=== PATIENT | female | born 1955 | race Caucasian/White ===

== ENCOUNTER → 2016-11-06 | Day surgery (SDC) | payer OTHER ==
[~2016-11-06] MED LIST: Bupivacaine 0.5% 50 ML MDV ONE; Dextrose 5%-Lactated Ringers 1,000 ML IV SCH; Lidocaine 1% with EPINEPHrine 1:100,000 50 ML MDV ONE; Midazolam 1 MG/ML 2 ML SDV ONE; Propofol 200 MG/20 ML SDV ONE; fentaNYL 100 MCG/2 ML SDV ONE
[2016-11-06 12:46] VITALS: BP 183/76
--- NOTE | 2016-11-09 14:26 | OR ---
DATE OF PROCEDURE: 11/06/2016 PREOPERATIVE DIAGNOSIS: Left breast mass. POSTOPERATIVE DIAGNOSIS: Left breast mass. OPERATIVE PROCEDURE: Excisional biopsy of the left breast mass ([id number]). ANESTHESIA: Local plus IV sedation. INDICATION FOR PROCEDURE: This is a 60-year-old presenting with a palpable mass in the left breast. It was located just adjacent to the nipple areolar complex at more or less 8 o'clock position and measured about a centimeter in size. This patient is status post previous breast implants in and the nodule is within the breast tissue nearly overlying the implant. Given this, it was felt needle biopsy might be somewhat risky given the age of this implant sacs of liquid silicone which if ruptured result in significant morbidity. Plan is to proceed with an excisional biopsy. Potential risks including bleeding, infection, possibility of the prosthesis becoming infected or damaged as well as possible cosmetic deformity were reviewed and the patient wishes to proceed. DETAILS OF PROCEDURE: The patient was taken to the operating room and placed in supine position. IV sedation was administered, and the left breast and surrounding areas were prepped and draped. The location of the mass which had been marked preoperatively was once again confirmed and the area along the nipple areolar complex in that location then anesthetized with 1% lidocaine mixed with Marcaine. A periareolar incision was then made and carried down through the skin and subcutaneous tissue. The mass was then sequentially dissected out. This appeared to be largely cystic in characteristics and the mass was removed intact and completely. Deeper soft tissue was then approximated with some 3-0 and 4- 0 Vicryl stitch and the skin with a 5-0 Vicryl subcuticular stitch. Dressing was applied. The patient was taken to the recovery room in satisfactory condition. There were no evident complications. Kurt Mckinley MD /[id number]
== END ==
LOC: JP.SDS 08:15
PROVIDERS: ATTEND Surgery
DX: D24.2 Benign neoplasm of left breast (principal); I10 Essential (primary) hypertension; F32.9 Major depressive disorder, single episode, unspecified; E66.9 Obesity, unspecified; F17.210 Nicotine dependence, cigarettes, uncomplicated; Z88.0 Allergy status to penicillin; Z88.8 Allergy status to other drugs, medicaments and biological substances
CPT/HCPCS: 19120; J2250; J2704; J3010; J7042; 88305; 88341; 88342

== ENCOUNTER 2017-08-07 13:08 | Emergency (ER) | payer OTHER ==
[2017-08-07] MEDS ORDERED: Ondansetron 4 MG Tab.DIS PO ONE (13:27)
[2017-08-07] MEDS ORDERED: Atropine/Diphenoxylate 0.025-2.5 MG Tab PO ONE (13:28)
[2017-08-07] MEDS ORDERED: Acetaminophen 500 MG Tab PO ONE (13:33)
--- NOTE | 2017-08-07 13:33 | EDM.PDOC ---
ED HPI GENERAL MEDICAL PROBLEM - General Chief Complaint: Abdominal Pain Stated Complaint: DIZZY AND LIGHT HEADED Time Seen by Provider: 08/07/17 13:15 Source of Information: Reports: Patient, Old Records, RN History Limitations: Reports: No Limitations - History of Present Illness INITIAL COMMENTS - FREE TEXT/NARRATIVE: 61 yo female presents with a week's duration of vomiting and diarrhea. Says her stools are dark. Says she has been nearly passing out today. Had an appt in 90 minutes in the clinic, but could not wait. Has a pHx of diverticulitis and this feels similar. Reports pain to both LLQ and RLQ's of her abdomen. No longer has a gallbladder or an appendix. Also has a dry cough that she attributes to her losartan, not her smoking. Onset Date: 07/31/17 Duration: Week(s): (1), Constant Location: Reports: Abdomen Quality: Reports: Dull Severity: Moderate Improves with: Reports: None Worsens with: Reports: None Associated Symptoms: Reports: Nausea/Vomiting, Syncope (near syncope). 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) (none) Lower Abdominal Pain Score (Numeric/FACES): 6 - Related Data Allergies Allergy/AdvReac Type Severity Reaction Status Date / Time Penicillins Allergy Intermediate Hives Verified 11/06/16 08:56 codeine Allergy Hives Verified 11/06/16 08:56 morphine Allergy Hives Verified 11/06/16 10:08 Home Meds: Home Meds DULoxetine [Cymbalta] 120 mg PO DAILY 11/03/16 [History] Losartan [Cozaar] 100 mg PO DAILY 11/03/16 [History] Naproxen [Naprosyn] 500 mg PO Q12HR 11/03/16 [History] Olmesartan Medoxomil 5 mg PO DAILY 11/03/16 [History] Ondansetron [Zofran ODT] 4 mg PO Q6H PRN #7 tab.dis 08/07/17 [Rx] amLODIPine Besylate [Norvasc] 10 mg PO DAILY #30 tablet 08/07/17 [Rx] Past Medical History Cardiovascular History: Reports: Hypertension Gastrointestinal History: Reports: None Genitourinary History: Reports: None 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 cervical fracture Neurological History: Reports: Concussion Psychiatric History: Reports: Depression - Past Surgical History Cardiovascular Surgical History: Reports: None GI Surgical History: Reports: Appendectomy, Cholecystectomy Female Surgical History: Reports: Breast Implant, Other (See Below) Other Female Surgeries/Procedures: left breast lump Neurological Surgical History: Reports: C-Spine Musculoskeletal Surgical History: Reports: Other (See Below) Other Musculoskeletal Surgeries/Procedures:: cervical fusion Dermatological Surgical History: Reports: None Social & Family History - Family History Family Medical History: Noncontributory - Tobacco Use Smoking Status *Q: Current Every Day Smoker Years of Tobacco use: 17 Packs/Tins Daily: 0.5 Used Tobacco, but Quit: No Month/Year Tobacco Last Used: 05/20 Second Hand Smoke Exposure: No - Caffeine Use Caffeine Use: Reports: Coffee - Alcohol Use Days Per Week of Alcohol Use: 0 - Recreational Drug Use Recreational Drug Use: Yes Recreational Drug Type: Reports: Marijuana/Hashish Recreational Drug Use Frequency: Rarely ED ROS GENERAL - Review of Systems Review Of Systems: See Below Constitutional: Reports: Malaise, Weakness HEENT: Reports: No Symptoms Respiratory: Reports: No Symptoms Cardiovascular: Reports: Lightheadedness Endocrine: Reports: No Symptoms GI/Abdominal: Reports: Abdominal Pain, Black Stool, Diarrhea, Nausea, Vomiting. Denies: Constipation, Distension, Hematemesis, Hematochezia : Reports: No Symptoms Musculoskeletal: Reports: No Symptoms Skin: Reports: No Symptoms Neurological: Reports: No Symptoms ED EXAM, GI/ABD - Physical Exam Exam: See Below Exam Limited By: No Limitations General Appearance: Alert, WD/WN, No Apparent Distress Eyes: Bilateral: Normal Appearance, EOMI Ears: Normal External Exam, Normal Canal, Hearing Grossly Normal, Normal TMs Nose: Normal Inspection, Normal Mucosa, No Blood Throat/Mouth: Normal Inspection, Normal Lips, Normal Oropharynx, Normal Voice, No Airway Compromise Head: Atraumatic, Normocephalic Neck: Normal Inspection, Supple Respiratory/Chest: No Respiratory Distress, Lungs Clear, Normal Breath Sounds, No Accessory Muscle Use Cardiovascular: Regular Rate, Rhythm, No Edema GI/Abdominal Exam: Normal Bowel Sounds, Soft, No Distention, Tender (LLQ and RLQ 's). No: Non-Tender, Distended, Guarding, Rigid, Rebound Extremities: Normal Inspection, Normal Range of Motion, Non-Tender, No Pedal Edema Neurological: Alert, Oriented, CN II-XII Intact, Normal Cognition, No Motor/ Sensory Deficits Psychiatric: Normal Affect, Normal Mood Skin Exam: Warm, Dry, Intact, Normal Color, No Rash Course - Vital Signs Text/Narrative:: Feeling a lot better after treatment. No more vomiting. Last Recorded V/S: Last Vital Signs Temp 35.2 C 08/07/17 13:40 Pulse 95 08/07/17 16:59 Resp 18 08/07/17 16:59 BP 170/83 H 08/07/17 16:59 Pulse Ox 97 08/07/17 16:59 Orthostatic Blood Pressure [ 150/82 Standing] Orthostatic Blood Pressure [ 129/82 Sitting] Orthostatic Blood Pressure [ 148/87 Supine] - Orders/Labs/Meds Orders: Active Orders 24 hr Category Date Time Status Orthostatic Vital Signs [RC] ASDIRECTED Care 08/07/17 13:27 Active Hemoccult [OCCULT BLOOD DIAGNOSTIC] [OP] Stat Lab 08/07/17 13:27 Ordered Labs: Laboratory Tests 08/07/17 08/07/17 Range/Units 13:40 13:40 WBC 5.7 (4.5-11.0) K/uL RBC 5.40 (3.30-5.50) M/uL Hgb 15.9 H (12.0-15.0) g/dL Hct 48.0 (36.0-48.0) % MCV 89 (80-98) fL MCH 29 (27-31) pg MCHC 33 (32-36) % Plt Count 230 (150-400) K/uL Sodium 137 L (140-148) mmol/L Potassium 4.1 (3.6-5.2) mmol/L Chloride 103 (100-108) mmol/L Carbon Dioxide 18 L (21-32) mmol/L Anion Gap 20.1 H (5.0-14.0) mmol/L BUN 18 (7-18) mg/dL Creatinine 1.2 H (0.6-1.0) mg/dL Est Cr Clr Drug Dosing 47.27 mL/min Estimated GFR (MDRD) 46 L (>60) Glucose 139 H (74-106) mg/dL Calcium 8.9 (8.5-10.1) mg/dL C-Reactive Protein 0.17 (0.0-0.3) mg/dL Meds: Medications Discontinued Medications Generic Name Dose Route Start Last Admin Trade Name Freq PRN Reason Stop Dose Admin Acetaminophen 1,000 mg 08/07/17 13:33 08/07/17 13:38 Tylenol Extra Strength PO 08/07/17 13:34 1,000 mg ONETIME ONE Administration Amlodipine Besylate 10 mg 08/07/17 17:24 Norvasc PO 08/07/17 17:25 ONETIME ONE Diphenoxylate HCl/Atropine 1 tab 08/07/17 13:28 08/07/17 13:38 Lomotil 0.025-2.5 Mg PO 08/07/17 13:29 1 tab ONETIME ONE Administration Lactated Ringer's 1,000 mls @ 1,000 mls/hr 08/07/17 14:41 08/07/17 14:59 Ringers, Lactated IV 08/07/17 15:40 1,000 mls/hr BOLUS ONE Administration Lactated Ringer's 1,000 mls @ 1,000 mls/hr 08/07/17 16:06 08/07/17 16:08 Ringers, Lactated IV 08/07/17 17:05 1,000 mls/hr BOLUS ONE Administration Ondansetron HCl 4 mg 08/07/17 13:27 08/07/17 13:38 Zofran Odt PO 08/07/17 13:28 4 mg ONETIME ONE Administration Departure - Departure Time of Disposition: 17:45 Disposition: Home, Self-Care 01 Condition: Fair Clinical Impression: Gastroenteritis, Mild dehydration HTN (hypertension) Qualifiers: Hypertension type: essential hypertension Qualified Code(s): I10 - Essential ( primary) hypertension - Discharge Information Prescriptions: amLODIPine Besylate [Norvasc] 10 mg PO DAILY #30 tablet Ondansetron [Zofran ODT] 4 mg PO Q6H PRN #7 tab.dis PRN Reason: Nausea Referrals: Liban Bragg MD [Primary Care Provider] - Forms: ED Department Discharge Additional Instructions: Take amlodipine 10 mg daily for your BP. Take Zofran as directed for nausea control. Take loperamide per package instructions for diarrhea control. Drink enough clear liquids to maintain hydration. Eat a BRAT diet and advance your diet as tolerated. You may use acetaminophen as needed for pain or fever control. Recheck in the clinic next week with your primary care provider. Return if worse. - My Orders Last 24 Hours: My Active Orders 08/07/17 13:27 Orthostatic Vital Signs [RC] ASDIRECTED Hemoccult [OCCULT BLOOD DIAGNOSTIC] [OP] Stat - Assessment/Plan Last 24 Hours: My Active Orders 08/07/17 13:27 Orthostatic Vital Signs [RC] ASDIRECTED Hemoccult [OCCULT BLOOD DIAGNOSTIC] [OP] Stat
[2017-08-07] MEDS ORDERED: Lactated Ringers 1,000 ML IV ONE ×2 (14:41→16:06)
[2017-08-07] MEDS ORDERED: amLODIPine 5 MG Tab PO ONE (17:24)
[2017-08-07 17:34] VITALS: BP 168/91
== END 2017-08-07 17:43 | disposition home or self-care (01) ==
LOC: JP.ED 13:08
DX: K52.9 Noninfective gastroenteritis and colitis, unspecified (principal); I10 Essential (primary) hypertension; F17.210 Nicotine dependence, cigarettes, uncomplicated; F32.9 Major depressive disorder, single episode, unspecified; Z88.5 Allergy status to narcotic agent; Z79.899 Other long term (current) drug therapy; Z88.0 Allergy status to penicillin
CPT/HCPCS: 36415; 80048; 85027; 86140; 96360; 96361; 99284; A9270; J7120

== ENCOUNTER 2018-05-27 07:23 | Emergency (ER) | payer OTHER ==
[2018-05-27 07:41] VITALS: BP 226/120
--- NOTE | 2018-05-27 08:06 | EDM.PDOC ---
ED HPI GENERAL MEDICAL PROBLEM - General Chief Complaint: Lower Extremity Injury/Pain Stated Complaint: INJURED RIGHT ANKLE Time Seen by Provider: 05/27/18 07:50 Source of Information: Reports: Patient History Limitations: Reports: No Limitations - History of Present Illness INITIAL COMMENTS - FREE TEXT/NARRATIVE: 62-year-old female hyperextended her right foot when she fell a week ago, she had swelling and bruising but was able to ambulate with pain so did not have it checked. It's been a week and she still having significant pain so finally she thought she better make sure she doesn't have a fracture. No other injury. Onset: Sudden Duration: Day(s): (7 days ago) Location: Reports: Lower Extremity, Right Associated Symptoms: Reports: No Other Symptoms Right Ankle Pain Score (Numeric/FACES): 10 - Related Data Allergies Allergy/AdvReac Type Severity Reaction Status Date / Time Penicillins Allergy Intermediate Hives Verified 05/27/18 07:38 codeine Allergy Hives Verified 05/27/18 07:38 morphine Allergy Hives Verified 05/27/18 07:38 Home Meds: Home Meds DULoxetine [Cymbalta] 120 mg PO DAILY 11/03/16 [History] Losartan [Cozaar] 100 mg PO DAILY 11/03/16 [History] Naproxen [Naprosyn] 500 mg PO Q12HR 11/03/16 [History] Olmesartan Medoxomil 5 mg PO DAILY 11/03/16 [History] Ondansetron [Zofran ODT] 4 mg PO Q6H PRN #7 tab.dis 08/07/17 [Rx] amLODIPine Besylate [Norvasc] 10 mg PO DAILY #30 tablet 08/07/17 [Rx] Past Medical History Cardiovascular History: Reports: Hypertension Gastrointestinal History: Reports: None Genitourinary History: Reports: 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 cervical fracture Neurological History: Reports: Concussion Psychiatric History: Reports: Depression - Past Surgical History GI Surgical History: Reports: Appendectomy, Cholecystectomy Female Surgical History: Reports: Breast Implant, Other (See Below) Other Female Surgeries/Procedures: left breast lump Neurological Surgical History: Reports: C-Spine Musculoskeletal Surgical History: Reports: Hip Replacement, Other (See Below) Other Musculoskeletal Surgeries/Procedures:: cervical fusion Social & Family History - Family History Family Medical History: Noncontributory - Tobacco Use Smoking Status *Q: Light Tobacco Smoker Years of Tobacco use: 19 Packs/Tins Daily: 0.3 - Caffeine Use Caffeine Use: Reports: Coffee - Recreational Drug Use Recreational Drug Use: No Review of Systems - Review of Systems Review Of Systems: See Below Constitutional: Denies: Fever Respiratory: Denies: Shortness of Breath Cardiovascular: Denies: Chest Pain GI/Abdominal: Denies: Abdominal Pain Skin: Reports: Bruising (Over the lateral malleolus) Neurological: Denies: Paresthesia ED EXAM, GENERAL - Physical Exam Exam: See Below Exam Limited By: No Limitations General Appearance: Alert, No Apparent Distress Respiratory/Chest: No Respiratory Distress Extremities: Other (Exam is otherwise limited to the lower extremities. The knees are normal and nontender. The right ankle is tender over both the lateral and medial malleolus, there is no deformity or crepitus. She has moderate swelling over the lateral and top of the foot with slight bruising.) Course - Vital Signs Last Recorded V/S: Last Vital Signs Temp 97.7 F 05/27/18 07:41 Pulse 100 05/27/18 07:41 Resp 16 05/27/18 07:41 BP 226/120 H 05/27/18 07:41 Pulse Ox 95 05/27/18 07:41 - Orders/Labs/Meds Orders: Active Orders 24 hr Category Date Time Status DME for Discharge [COMM] Stat Oth 05/27/18 08:31 Ordered - Re-Assessments/Exams Free Text/Narrative Re-Assessment/Exam: 05/27/18 08:06 An x-ray of the right ankle and right foot were obtained. 05/27/18 08:25 X-rays are negative for fracture, but do show a fair amount of arthritic changes. She'll be placed in a CAM walking boot through the weekend, she was offered crutches but declined. I think a recheck by podiatry or orthpedics next week would be worthwhile. Departure - Departure Time of Disposition: 08:57 Disposition: Home, Self-Care 01 Condition: Good Clinical Impression: Sprain of left ankle Qualifiers: Encounter type: initial encounter Involved ligament of ankle: anterior talofibular ligament Qualified Code(s): S93.492A - Sprain of other ligament of left ankle, initial encounter - Discharge Information Instructions: Ankle Sprain, [id number] Referrals: PCP,None [Primary Care Provider] - Forms: ED Department Discharge Care Plan Goals: Wear walking boot through the weekend, and recheck with Dr. Jason at 9:30 Thursday morning. Ibuprofen or naproxen will help with pain, add stronger pain medication as prescribed if needed. - My Orders Last 24 Hours: My Active Orders 05/27/18 08:31 DME for Discharge [COMM] Stat - Assessment/Plan Last 24 Hours: My Active Orders 05/27/18 08:31 DME for Discharge [COMM] Stat
--- NOTE | 2018-05-27 08:28 | CRLCR ---
HISTORY: Injury. TECHNIQUE: Three views right ankle. COMPARISON: None. FINDINGS: Soft tissue swelling is present. There is no acute fracture of the ankle. There is moderate degenerative joint disease with joint space narrowing and marginal spurring greatest medially. IMPRESSION: No acute fracture or displacement of the right ankle. Dictated by Vinicio Hartman MD @ May 27 2018 8:25AM Signed by Dr. Vinicio Hartman @ May 27 2018 8:26AM
--- NOTE | 2018-05-27 08:30 | CRLCR ---
HISTORY: Injury. TECHNIQUE: Three views right foot. COMPARISON: None. FINDINGS: There is no acute fracture or displacement. Degenerative joint disease is present at the 1st metatarsophalangeal joint. There is a moderate hallux valgus. There is also degenerative change at the 1st, 2nd, and 3rd tarsometatarsal joints. IMPRESSION: No acute fracture or displacement of the right foot. Dictated by Vinicio Hartman MD @ May 27 2018 8:26AM Signed by Dr. Vinicio Hartman @ May 27 2018 8:29AM
== END 2018-05-27 08:57 | disposition home or self-care (01) ==
LOC: JP.ED 07:23
DX: S93.492A Sprain of other ligament of left ankle, initial encounter (principal); I10 Essential (primary) hypertension; F17.210 Nicotine dependence, cigarettes, uncomplicated; Z88.0 Allergy status to penicillin; Z88.5 Allergy status to narcotic agent; Z79.899 Other long term (current) drug therapy; W18.39XA Other fall on same level, initial encounter
CPT/HCPCS: 73610-RT; 73630-RT; 99284

== ENCOUNTER 2019-01-17 10:00 | Emergency (ER) | payer OTHER ==
[2019-01-17 10:47] VITALS: BP 141/63; PULSE 97
[2019-01-17] MEDS ORDERED: HYDROmorphone 0.5 MG/0.5 ML Syringe IM ONE (11:07)
--- NOTE | 2019-01-17 11:14 | EDM.PDOC ---
ED HPI GENERAL MEDICAL PROBLEM - General Chief Complaint: Lower Extremity Injury/Pain Stated Complaint: LO DE OLIVEIRA SORAshvin HAD SURGERY ON NOVEMBER 02 Time Seen by Provider: 01/17/19 11:08 Source of Information: Reports: Patient History Limitations: Reports: No Limitations - History of Present Illness INITIAL COMMENTS - FREE TEXT/NARRATIVE: pt had a ankle replacement on November 02. She is having alot of pain in the ankle. This ankle is much more swollen and painful. Right Ankle Pain Score (Numeric/FACES): 8 - Related Data Allergies Allergy/AdvReac Type Severity Reaction Status Date / Time Penicillins Allergy Intermediate Hives Verified 05/27/18 07:38 Home Meds: Home Meds DULoxetine [Cymbalta] 120 mg PO DAILY 11/03/16 [History] Losartan [Cozaar] 100 mg PO DAILY 11/03/16 [History] Naproxen [Naprosyn] 500 mg PO Q12HR 11/03/16 [History] amLODIPine Besylate [Norvasc] 10 mg PO DAILY #30 tablet 08/07/17 [Rx] FLUoxetine HCl [Prozac] 20 mg PO DAILY 01/17/19 [History] Past Medical History HEENT History: Reports: Impaired Vision Cardiovascular History: Reports: Hypertension Respiratory History: Reports: None Gastrointestinal History: Reports: None Genitourinary History: Reports: 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 cervical fracture. R ankle replacement Neurological History: Reports: Concussion Psychiatric History: Reports: Depression Endocrine/Metabolic History: Reports: None Hematologic History: Reports: None Immunologic History: Reports: None Oncologic (Cancer) History: Reports: None Dermatologic History: Reports: None - Past Surgical History Head Surgeries/Procedures: Reports: None HEENT Surgical History: Reports: Adenoidectomy, Tonsillectomy Cardiovascular Surgical History: Reports: None GI Surgical History: Reports: Appendectomy, Cholecystectomy Female Surgical History: Reports: Breast Implant, Other (See Below) Other Female Surgeries/Procedures: left breast lump Neurological Surgical History: Reports: C-Spine, Spinal Fusion Musculoskeletal Surgical History: Reports: Hip Replacement, Other (See Below) Other Musculoskeletal Surgeries/Procedures:: cervical fusion Dermatological Surgical History: Reports: None Social & Family History - Family History Family Medical History: Noncontributory - Tobacco Use Smoking Status *Q: Current Every Day Smoker Years of Tobacco use: 19 Packs/Tins Daily: 0.5 Used Tobacco, but Quit: No - Caffeine Use Caffeine Use: Reports: Coffee - Recreational Drug Use Recreational Drug Use: No Review of Systems - Review of Systems Review Of Systems: See Below Constitutional: Reports: No Symptoms Eyes: Reports: No Symptoms Ears: Reports: No Symptoms Nose: Reports: No Symptoms Mouth/Throat: Reports: No Symptoms Respiratory: Reports: No Symptoms Cardiovascular: Reports: No Symptoms GI/Abdominal: Reports: No Symptoms Musculoskeletal: Reports: Other (increased ankle redness , swelling and pain-- robable infection) Neurological: Reports: No Symptoms ED EXAM, GENERAL - Physical Exam Exam: See Below Free Text/Narrative:: pt arrived with redness increased swelling and pain in the rt ankle. She has a elevated wbc and crp. Exam Limited By: No Limitations General Appearance: Alert, Anxious, Severe Distress Neurological: Other ( rt ankle is red swollen, She is very tender. She is having severe pain. ) Psychiatric: Anxious Course - Vital Signs Last Recorded V/S: Last Vital Signs Temp 35.9 C 01/17/19 10:47 Pulse 97 01/17/19 10:47 Resp 17 01/17/19 10:47 BP 141/63 H 01/17/19 10:47 Pulse Ox 95 01/17/19 10:47 - Orders/Labs/Meds Labs: Laboratory Tests 01/17/19 01/17/19 Range/Units 11:07 11:07 WBC 17.2 H (4.5-11.0) K/uL RBC 4.31 (3.30-5.50) M/uL Hgb 13.0 D (12.0-15.0) g/dL Hct 40.3 (36.0-48.0) % MCV 94 (80-98) fL MCH 30 (27-31) pg MCHC 32 (32-36) % Plt Count 261 (150-400) K/uL Neut % (Auto) 85 H (36-66) % Lymph % (Auto) 6 L (24-44) % Colbert % (Auto) 8 H (2-6) % Eos % (Auto) 1 L (2-4) % Baso % (Auto) 0 (0-1) % C-Reactive Protein 21.55 H (0.0-0.3) mg/dL Meds: Medications Discontinued Medications Generic Name Dose Route Start Last Admin Trade Name [place] PRN Reason Stop Dose Admin Hydromorphone HCl 0.5 mg 01/17/19 11:07 01/17/19 11:24 Dilaudid IM 01/17/19 11:08 0.5 mg ONETIME ONE Administration Oxycodone/Acetaminophen 1 tab 01/17/19 11:42 Percocet 325-5 Mg PO 01/17/19 11:43 ONETIME ONE - Re-Assessments/Exams Free Text/Narrative Re-Assessment/Exam: 01/17/19 11:50 pt was given dilaudid .5 im and percocet 5/325 po for the trip. She will go to Dr [facility] for evaluation Departure - Departure Time of Disposition: 11:42 Disposition: DC/Tfer to Acute Hospital 02 Condition: Fair Clinical Impression: Ankle joint replacement status, Infected wound - Discharge Information Referrals: Liban Bragg MD [Primary Care Provider] - Forms: ED Department Discharge Care Plan Goals: go to the orthopedic clinic. Dr Wick will be expecting you. He will see you in the clinic and the wound may need to be opened. His office is at the main clinic on [address].
[2019-01-17] MEDS ORDERED: Acetaminophen/oxyCODONE 325-5 MG Tab PO ONE (11:42)
== END 2019-01-17 12:04 ==
LOC: JP.ED 10:00
DX: T84.59XA Infection and inflammatory reaction due to other internal joint prosthesis, initial encounter (principal); I10 Essential (primary) hypertension; F32.9 Major depressive disorder, single episode, unspecified; F17.210 Nicotine dependence, cigarettes, uncomplicated; Z96.661 Presence of right artificial ankle joint; Z79.899 Other long term (current) drug therapy; Z88.0 Allergy status to penicillin
CPT/HCPCS: 36415; 85025; 86140; 96372; 99284; A9270; J1170

== ENCOUNTER 2019-09-25 15:45 | Emergency (ER) | payer MEDICAID ==
[2019-09-25 17:31] VITALS: BP 139/70; PULSE 72
[2019-09-25] MEDS ORDERED: Ondansetron 4 MG Tab.DIS PO ONE (17:48)
[2019-09-25] MEDS ORDERED: Ketorolac 30 MG/ML SDV IVPUSH ONE (17:59)
[2019-09-25] MEDS ORDERED: Ondansetron 4 MG/2 ML SDV IVPUSH ONE (18:00)
--- NOTE | 2019-09-25 18:01 | EDM.PDOC ---
ED HPI GENERAL MEDICAL PROBLEM - General Chief Complaint: Gastrointestinal Problem Stated Complaint: DIARRHEA, VOMITING Time Seen by Provider: 09/25/19 17:45 Source of Information: Reports: Patient History Limitations: Reports: No Limitations - History of Present Illness INITIAL COMMENTS - FREE TEXT/NARRATIVE: 63 year old female presents to [facility] for evaluation of nausea and vomiting since Thursday. Patient ate a [employer] for the first time in years and has nausea, dry heaving and diarrhea since that time. Patient is concerned about foot infection recurrence, as her symptoms are similar to severe bone infection in her right foot requiring extensive orthopedic surgery, IV antibiotic for 8+ weeks and repeat surgery with internal hardware due to nan- union or healing ankle fracture/after ankle joint replacement. Patient has mild upper abdominal pain without fever or bloody stools. Patient denies urinary symptoms. Patient is concerned about foot infection due to picking at a scab yesterday resulting in small amount of drainage and pain. Patient's pain is not necessarily new worse or different from her chronic foot pain. She has been unable to take Ibuprofen, Tylenol or Gabapentin due to nausea and vomiting the last 3-5 days. - Related Data Allergies Allergy/AdvReac Type Severity Reaction Status Date / Time Penicillins Allergy Intermediate Hives Verified 09/25/19 17:36 Home Meds: Home Meds DULoxetine [Cymbalta] 120 mg PO DAILY 11/03/16 [History] Losartan [Cozaar] 100 mg PO DAILY 11/03/16 [History] FLUoxetine HCl [Prozac] 60 mg PO DAILY 01/17/19 [History] amLODIPine [Norvasc] 10 mg PO DAILY 02/24/19 [History] Gabapentin [Neurontin] 100 mg PO BEDTIME 05/02/19 [History] Propranolol HCl [Propranolol] 60 mg PO DAILY 05/02/19 [History] Famotidine 1 tab PO DAILY 09/25/19 [History] Gabapentin [Neurontin] 1 tab PO BEDTIME 09/25/19 [History] Ondansetron [Zofran ODT] 4 mg PO Q6H PRN 2 Days #10 tab.dis 09/25/19 [Rx] Past Medical History HEENT History: Reports: Impaired Vision Cardiovascular History: Reports: Hypertension Respiratory History: Reports: None Gastrointestinal History: Reports: None Genitourinary History: Reports: None 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 cervical fracture. R ankle replacement Neurological History: Reports: Concussion Psychiatric History: Reports: Depression Endocrine/Metabolic History: Reports: None Hematologic History: Reports: None Immunologic History: Reports: None Oncologic (Cancer) History: Reports: None Dermatologic History: Reports: None - Past Surgical History Head Surgeries/Procedures: Reports: None HEENT Surgical History: Reports: Adenoidectomy, Tonsillectomy Cardiovascular Surgical History: Reports: None GI Surgical History: Reports: Appendectomy, Cholecystectomy Female Surgical History: Reports: Breast Implant, Other (See Below) Other Female Surgeries/Procedures: left breast lump Neurological Surgical History: Reports: C-Spine, Spinal Fusion Dermatological Surgical History: Reports: None Social & Family History - Family History Family Medical History: Noncontributory - Tobacco Use Smoking Status *Q: Never Smoker - Caffeine Use Caffeine Use: Reports: Coffee ED ROS GENERAL - Review of Systems Review Of Systems: Comprehensive ROS is negative, except as noted in HPI. ED EXAM, GI/ABD - Physical Exam Exam: See Below Exam Limited By: No Limitations General Appearance: Alert, WD/WN, No Apparent Distress, Mild Distress (Gi concerns, dehydration and right foot pain) Eyes: Bilateral: Normal Appearance, EOMI Ears: Normal External Exam, Hearing Grossly Normal Nose: Normal Inspection Throat/Mouth: Normal Inspection, Normal Voice, No Airway Compromise (dry) Neck: Normal Inspection, Supple, Non-Tender, Full Range of Motion Respiratory/Chest: No Respiratory Distress, Lungs Clear, Normal Breath Sounds Cardiovascular: Normal Peripheral Pulses, Regular Rate, Rhythm GI/Abdominal Exam: Normal Bowel Sounds, Soft, No Distention, No Mass, Tender (mild discomfort across upper abdomen with out focal pain to palpation) (Female) Exam: Deferred Rectal (Female) Exam: Deferred Back Exam: No: CVA Tenderness (R), CVA Tenderness (L) Extremities: Normal Inspection, Other (right ankle scarring noted from previous surgery. small scab on plantar surface of heel, removed without signs of erythema, induration or fluctuance noted. US POC soft tissue completed for further evaluation ) ED ABDOMINAL/GI PROCEDURES - Additional/Other Procedure(s) Procedure(s) (Free Text): Soft Tissue POC US: cobblestoning noted under area of concern right heel at level of calcaneal spur/plantar fascia insertion. Course - Vital Signs Last Recorded V/S: Last Vital Signs Temp 35.7 C L 09/25/19 17:46 Pulse 72 09/25/19 17:46 Resp 20 09/25/19 17:46 BP 139/70 09/25/19 17:46 Pulse Ox 100 09/25/19 17:46 - Orders/Labs/Meds Orders: Active Orders 24 hr Category Date Time Status Vital Signs [RC] PFP Care 09/25/19 18:01 Active Sodium Chloride 0.9% [Normal Saline] 1,000 ml Med 09/25/19 18:00 Active IV ASDIRECTED Sodium Chloride 0.9% [Normal Saline] 1,000 ml Med 09/25/19 19:00 Active IV ASDIRECTED Medication Orders Sodium Chloride (Normal Saline) 1,000 mls @ 500 mls/hr IV ASDIRECTED CYNTHIA Last Admin: 09/25/19 19:46 Dose: 500 mls/hr Documented by: Infusion: 09/25/19 19:46 Dose: 500 mls/hr Documented by: Admin: 09/25/19 18:22 Dose: 500 mls/hr Documented by: MARLEN Sodium Chloride (Normal Saline) 1,000 mls @ 500 mls/hr IV ASDIRECTED CYNTHIA Labs: Laboratory Tests 09/25/19 09/25/19 09/25/19 Range/Units 18:21 18:21 18:21 WBC 9.9 (4.5-11.0) K/uL RBC 4.88 (3.30-5.50) M/uL Hgb 13.0 (12.0-15.0) g/dL Hct 41.0 (36.0-48.0) % MCV 84 (80-98) fL MCH 27 (27-31) pg MCHC 32 (32-36) % Plt Count 370 (150-400) K/uL Neut % (Auto) 63 (36-66) % Lymph % (Auto) 21 L (24-44) % Caroline % (Auto) 14 H (2-6) % Eos % (Auto) 2 (2-4) % Baso % (Auto) 0 (0-1) % Sodium 134 L (140-148) mmol/L Potassium 4.4 (3.6-5.2) mmol/L Chloride 100 (100-108) mmol/L Carbon Dioxide 26 (21-32) mmol/L Anion Gap 12.4 (5.0-14.0) mmol/L BUN 31 H (7-18) mg/dL Creatinine 1.9 H D (0.6-1.0) mg/dL Est Cr Clr Drug Dosing 29.09 mL/min Estimated GFR (MDRD) 27 L (>60) Glucose 112 H (74-106) mg/dL Calcium 9.2 (8.5-10.1) mg/dL Magnesium (1.8-2.4) mg/dL Total Bilirubin 0.5 (0.2-1.0) mg/dL AST 24 (15-37) U/L ALT 34 (12-78) U/L Alkaline Phosphatase 155 H (46-116) U/L C-Reactive Protein < 0.05 (0.0-0.3) mg/dL Total Protein 8.1 (6.4-8.2) g/dL Albumin 3.5 (3.4-5.0) g/dL Globulin 4.6 H (2.3-3.5) g/dL Albumin/Globulin Ratio 0.8 L (1.2-2.2) 09/25/19 Range/Units 18:55 WBC (4.5-11.0) K/uL RBC (3.30-5.50) M/uL Hgb (12.0-15.0) g/dL Hct (36.0-48.0) % MCV (80-98) fL MCH (27-31) pg MCHC (32-36) % Plt Count (150-400) K/uL Neut % (Auto) (36-66) % Lymph % (Auto) (24-44) % Caroline % (Auto) (2-6) % Eos % (Auto) (2-4) % Baso % (Auto) (0-1) % Sodium (140-148) mmol/L Potassium (3.6-5.2) mmol/L Chloride (100-108) mmol/L Carbon Dioxide (21-32) mmol/L Anion Gap (5.0-14.0) mmol/L BUN (7-18) mg/dL Creatinine (0.6-1.0) mg/dL Est Cr Clr Drug Dosing mL/min Estimated GFR (MDRD) (>60) Glucose (74-106) mg/dL Calcium (8.5-10.1) mg/dL Magnesium 2.3 (1.8-2.4) mg/dL Total Bilirubin (0.2-1.0) mg/dL AST (15-37) U/L ALT (12-78) U/L Alkaline Phosphatase (46-116) U/L C-Reactive Protein (0.0-0.3) mg/dL Total Protein (6.4-8.2) g/dL Albumin (3.4-5.0) g/dL Globulin (2.3-3.5) g/dL Albumin/Globulin Ratio (1.2-2.2) Meds: Medications Generic Name Dose Route Start Last Admin Trade Name Freq PRN Reason Stop Dose Admin Sodium Chloride 1,000 mls @ 500 mls/hr 09/25/19 18:00 09/25/19 19:46 Normal Saline IV 500 mls/hr ASDIRECTED CYNTHIA Administration Sodium Chloride 1,000 mls @ 500 mls/hr 09/25/19 19:00 Normal Saline IV ASDIRECTED CYNTHIA Discontinued Medications Generic Name Dose Route Start Last Admin Trade Name Freq PRN Reason Stop Dose Admin Acetaminophen 650 mg 09/25/19 18:31 Tylenol PO 09/25/19 18:32 NOW ONE Ketorolac Tromethamine 15 mg 09/25/19 17:59 09/25/19 18:22 Toradol IVPUSH 09/25/19 18:00 15 mg ONETIME ONE Administration Ondansetron HCl 4 mg 09/25/19 17:48 Zofran Odt PO 09/25/19 17:49 ONETIME ONE Ondansetron HCl 4 mg 09/25/19 18:00 09/25/19 18:22 Zofran IVPUSH 09/25/19 18:01 4 mg ONETIME ONE Administration Ondansetron HCl Confirm 09/25/19 18:02 Zofran Odt Administered 09/25/19 18:03 Dose 4 mg .ROUTE .STK-MED ONE Departure - Departure Time of Disposition: 21:17 Disposition: Home, Self-Care 01 Clinical Impression: Dehydration, Nausea & vomiting, Diarrhea, Acute renal insufficiency - Discharge Information Prescriptions: Ondansetron [Zofran ODT] 4 mg PO Q6H PRN 2 Days #10 tab.dis PRN Reason: Vomiting Instructions: Acute Kidney Injury, Adult, Food Basics for Chronic Kidney Disease, Food Choices to Help Relieve Diarrhea, Adult, Rehydration, Adult, Nausea and Vomiting, Adult, Probiotics, Dehydration, Adult Referrals: PCP,None [Primary Care Provider] - Forms: ED Department Discharge Additional Instructions: 1. Increase fluid intake. 2. Diet for chronic renal failure given for foods that are good or should be avoid short term while your kidney recover from dehydration. 3. Your renal function has been effected by dehydration and will hopefully improve with IV fluid and improved oral rehydration. 4. Zofran ODT 4 mg every 6-8 hours x 2 days to help control nausea and allow for improved hydration. 5. If diarrhea continues for more than 72 hours or become blood stool cultures are usually recommended. 6. Continue Tylenol 500-1000mg as needed for foot pain MAx dose 3000mg per 24 hours. 7. Avoid Ibuprofen for pain this week if possible to help your kidney recover from acute injury. 8. Call your PCP of choice for recheck this week to ensure renal function is improving with treatment recommendations. 9. If renal function is not improving an appointment with a blood bank calendar control clerk would be recommended. 10. Return to ER if concerns, changes new, worsening symptoms or concerns Sepsis Event Note (ED) - Evaluation Sepsis Screening Result: No Definite Risk - Focused Exam Vital Signs: Vital Signs Temp Pulse Resp BP Pulse Ox 09/25/19 17:46 35.7 C L 72 20 139/70 100 09/25/19 17:29 35.7 C L 72 20 139/70 100 - My Orders Last 24 Hours: My Active Orders 09/25/19 18:00 Sodium Chloride 0.9% [Normal Saline] 1,000 ml IV ASDIRECTED 09/25/19 18:01 Vital Signs [RC] PFP 09/25/19 19:00 Sodium Chloride 0.9% [Normal Saline] 1,000 ml IV ASDIRECTED - Assessment/Plan Last 24 Hours: My Active Orders 09/25/19 18:00 Sodium Chloride 0.9% [Normal Saline] 1,000 ml IV ASDIRECTED 09/25/19 18:01 Vital Signs [RC] PFP 09/25/19 19:00 Sodium Chloride 0.9% [Normal Saline] 1,000 ml IV ASDIRECTED
[2019-09-25] MEDS ORDERED: Ondansetron 4 MG Tab.DIS ONE (18:02)
[2019-09-25] MEDS: Sodium Chloride 0.9% 1,000 ML IV SCH ×2 (18:22→19:46)
[2019-09-25] MEDS ORDERED: Acetaminophen 325 MG Tab PO ONE (18:31)
[2019-09-25] MEDS ORDERED: Sodium Chloride 0.9% 1,000 ML IV SCH (19:00)
== END 2019-09-25 21:20 | disposition home or self-care (01) ==
LOC: JP.ED 15:45
DX: E86.0 Dehydration (principal); R11.2 Nausea with vomiting, unspecified; R19.7 Diarrhea, unspecified; N28.9 Disorder of kidney and ureter, unspecified; I10 Essential (primary) hypertension; F32.9 Major depressive disorder, single episode, unspecified; Z79.899 Other long term (current) drug therapy; Z88.0 Allergy status to penicillin; Z90.49 Acquired absence of other specified parts of digestive tract
CPT/HCPCS: 36415; 80053; 83735; 85025; 86140; 96361; 96374; 96375; 99284; J1885; J2405; J7030

== ENCOUNTER 2021-01-17 12:06 | Emergency (ER) | payer OTHER, MEDICAID ==
[2021-01-17] MEDS ORDERED: LORazepam 2 MG/ML SDV IVPUSH ONE (12:16)
[2021-01-17] MEDS ORDERED: fentaNYL 100 MCG/2 ML SDV IVPUSH ONE (12:16)
--- NOTE | 2021-01-17 12:28 | EDM.PDOC ---
ED HPI GENERAL MEDICAL PROBLEM - General Chief Complaint: General Stated Complaint: HEART PROBLEMS Time Seen by Provider: 01/17/21 12:06 Source of Information: Reports: Patient History Limitations: Reports: No Limitations - History of Present Illness INITIAL COMMENTS - FREE TEXT/NARRATIVE: 65-year-old female who has been feeling poorly for the past couple of days, nausea and vomiting, was feeling better this morning so was cooking some food when she started developing some chest pressure and tightness and sharp pain. She tried to get in the shower but it got worse, she started hyperventilating and having intense pain searing through her chest into her neck and both shoulders. Her hands are getting numb and she was having trouble standing and was getting very dizzy. She is vaccinated for Covid, she is not febrile. She arrived extremely anxious, hyperventilating with O2 sats 100%. She was also in a sinus tachycardia. She said she was recently taken off a "2 beta-blockers" because they were making her lightheaded, she was supposed to go to the pharmacy yesterday but did not make it because she was not feeling well. She does not have asthma or COPD, she is not a smoker, she has not had the symptoms in the past. Onset: Sudden Duration: Hour(s): (Symptoms started fairly suddenly about 30 minutes ago) Location: Reports: Neck, Chest, Upper Extremity, Left, Upper Extremity, Right Quality: Reports: Sharp, Stabbing Worsens with: Reports: Breathing, Other (Palpation of the chest wall causes pain), Movement Associated Symptoms: Reports: Chest Pain, Malaise, Shortness of Breath, Weakness. Denies: Cough, Diaphoresis Chest Pain Score (Numeric/FACES): 8 - Related Data Allergies Allergy/AdvReac Type Severity Reaction Status Date / Time Penicillins Allergy Intermediate Hives Verified 09/25/19 17:36 Home Meds: Home Meds DULoxetine [Cymbalta] 120 mg PO DAILY 11/03/16 [History] Losartan [Cozaar] 100 mg PO DAILY 11/03/16 [History] FLUoxetine HCl [Prozac] 60 mg PO DAILY 01/17/19 [History] amLODIPine [Norvasc] 10 mg PO DAILY 02/24/19 [History] Famotidine 1 tab PO DAILY 09/25/19 [History] Past Medical History HEENT History: Reports: Impaired Vision Cardiovascular History: Reports: Hypertension Respiratory History: Reports: None Gastrointestinal History: Reports: None Genitourinary History: Reports: None 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 cervical fracture. R ankle replacement Neurological History: Reports: Concussion Psychiatric History: Reports: Depression Endocrine/Metabolic History: Reports: None Hematologic History: Reports: None Immunologic History: Reports: None Oncologic (Cancer) History: Reports: None Dermatologic History: Reports: None - Infectious Disease History Infectious Disease History: Reports: Chicken Pox - Past Surgical History Head Surgeries/Procedures: Reports: None HEENT Surgical History: Reports: Adenoidectomy, Tonsillectomy Cardiovascular Surgical History: Reports: None GI Surgical History: Reports: Appendectomy, Cholecystectomy Female Surgical History: Reports: Breast Implant, Other (See Below) Other Female Surgeries/Procedures: left breast lump Neurological Surgical History: Reports: C-Spine, Spinal Fusion Musculoskeletal Surgical History: Reports: Hip Replacement, Other (See Below) Other Musculoskeletal Surgeries/Procedures:: cervical fusion Dermatological Surgical History: Reports: None Social & Family History - Family History Family Medical History: No Pertinent Family History - Caffeine Use Caffeine Use: Reports: Coffee ED ROS GENERAL - Review of Systems Review Of Systems: See Below Constitutional: Reports: Malaise. Denies: Fever, Chills HEENT: Denies: Throat Pain, Vision Change Respiratory: Reports: Shortness of Breath, Pleuritic Chest Pain Cardiovascular: Reports: Chest Pain, Palpitations Endocrine: Denies: Fatigue GI/Abdominal: Reports: Diarrhea, Nausea, Vomiting (Significant nausea and vomiting over the past 48 hours). Denies: Abdominal Pain : Reports: No Symptoms Musculoskeletal: Reports: Neck Pain, Shoulder Pain, Arm Pain (Bilateral bilateral), Back Pain (Mid back) Skin: Reports: No Symptoms Neurological: Reports: Dizziness. Denies: Headache Psychiatric: Reports: Anxiety ED EXAM, GENERAL - Physical Exam Exam: See Below Free Text/Narrative:: Patient presents very agitated and anxious, intense pain in her back and shoulders with the sudden onset gives concern to some type of vessel injury. EKG was done urgently and showed sinus tachycardia but no ST elevation or depression. She did appear to have ventricular hypertrophy consistent with an EKG in 2018. A Exam Limited By: No Limitations General Appearance: Anxious, Moderate Distress Eye Exam: Bilateral Eye: Normal Inspection Head: Atraumatic Neck: Supple, Non-Tender. No: Carotid Bruit, Lymphadenopathy (R), Lymphadenopathy (L) Respiratory/Chest: No Respiratory Distress, Lungs Clear Cardiovascular: Regular Rate, Rhythm, No Murmur, Tachycardia GI/Abdominal: Soft, Non-Tender, No Mass Extremities: Normal Inspection. No: Pedal Edema Neurological: Alert, Oriented Psychiatric: Anxious Skin Exam: Warm, Dry #1 Interpretation EKG Date: 01/17/21 QRS: Other (Evidence of ventricular hypertrophy consistent with 2018) ST-T: Normal EKG Interpretation Comments: Sinus tachycardia without ST changes Course - Vital Signs Last Recorded V/S: Last Vital Signs Temp 96.6 F L 01/17/21 12:16 Pulse 88 01/17/21 17:52 Resp 17 01/17/21 17:52 BP 139/69 01/17/21 17:52 Pulse Ox 96 01/17/21 17:52 - Orders/Labs/Meds Labs: Laboratory Tests 01/17/21 01/17/21 01/17/21 Range/Units 12:13 12:13 12:13 WBC 5.5 (4.5-11.0) K/uL RBC 5.46 (3.30-5.50) M/uL Hgb 16.1 H D (12.0-15.0) g/dL Hct 47.0 (36.0-48.0) % MCV 86 (80-98) fL MCH 30 (27-31) pg MCHC 34 (32-36) % Plt Count 214 (150-400) K/uL Neut % (Auto) 49.0 (36-66) % Lymph % (Auto) 32.6 (24-44) % Tompkins % (Auto) 13.8 H (2-6) % Eos % (Auto) 0.2 L (2-4) % Baso % (Auto) 4.4 H (0-1) % D-Dimer, Quantitative 2515.69 H (0.0-500.0) ng/mL Sodium 136 L (140-148) mmol/L Potassium 3.3 L (3.6-5.2) mmol/L Chloride 98 L (100-108) mmol/L Carbon Dioxide 22 (21-32) mmol/L Anion Gap 19.3 H (5.0-14.0) mmol/L BUN 15 D (7-18) mg/dL Creatinine 1.3 H (0.6-1.0) mg/dL Est Cr Clr Drug Dosing TNP Estimated GFR (MDRD) 41 L (>60) Glucose 130 H (74-106) mg/dL Calcium 9.5 (8.5-10.1) mg/dL Total Bilirubin 0.6 (0.2-1.0) mg/dL AST 89 H D (15-37) U/L ALT 121 H (12-78) U/L Alkaline Phosphatase 204 H (46-116) U/L Troponin I < 0.017 (0.000-0.056) ng/mL Total Protein 7.3 (6.4-8.2) g/dL Albumin 3.7 (3.4-5.0) g/dL Globulin 3.6 H (2.3-3.5) g/dL Albumin/Globulin Ratio 1.0 L (1.2-2.2) 01/17/21 Range/Units 15:55 WBC (4.5-11.0) K/uL RBC (3.30-5.50) M/uL Hgb (12.0-15.0) g/dL Hct (36.0-48.0) % MCV (80-98) fL MCH (27-31) pg MCHC (32-36) % Plt Count (150-400) K/uL Neut % (Auto) (36-66) % Lymph % (Auto) (24-44) % Tompkins % (Auto) (2-6) % Eos % (Auto) (2-4) % Baso % (Auto) (0-1) % D-Dimer, Quantitative (0.0-500.0) ng/mL Sodium (140-148) mmol/L Potassium (3.6-5.2) mmol/L Chloride (100-108) mmol/L Carbon Dioxide (21-32) mmol/L Anion Gap (5.0-14.0) mmol/L BUN (7-18) mg/dL Creatinine (0.6-1.0) mg/dL Est Cr Clr Drug Dosing Estimated GFR (MDRD) (>60) Glucose (74-106) mg/dL Calcium (8.5-10.1) mg/dL Total Bilirubin (0.2-1.0) mg/dL AST (15-37) U/L ALT (12-78) U/L Alkaline Phosphatase (46-116) U/L Troponin I < 0.017 (0.000-0.056) ng/mL Total Protein (6.4-8.2) g/dL Albumin (3.4-5.0) g/dL Globulin (2.3-3.5) g/dL Albumin/Globulin Ratio (1.2-2.2) Meds: Medications Discontinued Medications Generic Name Dose Route Start Last Admin Trade Name Freq PRN Reason Stop Dose Admin Fentanyl 50 mcg 01/17/21 12:16 01/17/21 12:20 Fentanyl 100 Mcg/2 Ml Sdv IVPUSH 01/17/21 12:17 50 mcg ONETIME ONE Administration Sodium Chloride 1,000 mls @ 1,000 mls/hr 01/17/21 12:45 01/17/21 13:00 Normal Saline IV 1,000 mls/hr ASDIRECTED CYNTHIA Administration Sodium Chloride 100 mls @ 3.5 mls/sec 01/17/21 14:00 01/17/21 15:33 Normal Saline IV 01/17/21 14:01 4 mls/sec ASDIRECTED CYNTHIA Administration Iopamidol 100 ml 01/17/21 14:00 01/17/21 15:33 Iopamidol 755 Mg/Ml 100 Ml Bottle IV 01/17/21 14:01 100 ml . DIRECTED CYNTHIA Administration Labetalol HCl 10 mg 01/17/21 15:47 01/17/21 15:55 Labetalol 20 Mg/4 Ml Syringe IVPUSH 01/17/21 15:48 10 mg ONETIME ONE Administration Protocol Lorazepam 1 mg 01/17/21 12:16 01/17/21 12:21 Lorazepam 2 Mg/Ml Sdv IVPUSH 01/17/21 12:17 1 mg ONETIME ONE Administration Sodium Chloride 10 ml 01/17/21 13:46 01/17/21 15:33 Sodium Chloride 0.9% 10 Ml Syringe FLUSH 01/17/21 13:47 10 ml ONETIME ONE Administration - Re-Assessments/Exams Free Text/Narrative Re-Assessment/Exam: 01/17/21 12:37 Due to the patient's extreme anxiety and discomfort, 1 mg of Ativan and 50 mcg of fentanyl were given IV. CBC, BMP, D-dimer, troponin and EKG were ordered. 01/17/21 12:[address] changes, O2 saturations were 100%. Within 15 minutes of the medication the patient felt "much better". 1 L of normal saline was bolused due to her recent nausea vomiting and diarrhea, and the intention of an IV contrast-enhanced chest CT. 01/17/21 15:32 Although the patient was much more comfortable, she continued to have some back pain and the CT scan unfortunately confirms some acute changes in the descending aorta. This will be discussed with vascular surgery in [place]. 01/17/21 17:58 Dr. Ocampo, cardiothoracic surgeon in [place] kindly accepted the patient for transfer for observation and decision on treatment. Departure - Departure Time of Disposition: 19:23 Disposition: Home, Self-Care 01 Clinical Impression: Descending thoracic aortic dissection, Penetrating ulcer of aorta - Discharge Information Referrals: Katerin Hanson DO [Primary Care Provider] - Forms: ED Department Discharge Care Plan Goals: Patient will be transferred by EMS to [facility] for admission and further evaluation and treatment for ulceration and atherosclerotic plaque of the descending aorta. Sepsis Event Note (ED) - Evaluation Sepsis Screening Result: Possible Sepsis Risk
[2021-01-17] MEDS ORDERED: Sodium Chloride 0.9% 1,000 ML IV SCH (12:45)
[2021-01-17] MEDS ORDERED: Sodium Chloride 0.9% 10 ML Syringe FLUSH ONE (13:46)
[2021-01-17] MEDS ORDERED: Sodium Chloride 0.9% 100 ML IV SCH (14:00)
[2021-01-17] MEDS ORDERED: Iopamidol 755 Mg/ML 100 ML Bottle IV SCH (14:00)
--- NOTE | 2021-01-17 15:38 | CT ---
Ang Chest, CTA Abd Pelv w Cont CLINICAL HISTORY: Sudden severe pain TECHNIQUE: Thin section axial contiguous tomographic sections were taken through the chest after bolus IV iodinated contrast administration. Coronal and sagittal images were reconstructed. Auto dosage reduction and iterative reconstruction techniques employed. FINDINGS: The ascending aorta and anterior arch have a normal contour. There is diffuse irregular aortic wall thickening in the descending thoracic aorta extending to the diaphragmatic afshan. In the distal third of the descending thoracic aorta there is moderate focal irregular thickening. There is contrast seen extending into the medial which is suspect for penetrating ulcer in probable intramural hematoma. The neck measures approximately 4 mm. No mediastinal or thoracic hemorrhage is identified. No pulmonary masses or infiltrates are seen. There is no suspicious lymphadenopathy. There is moderate intimal irregularity in the mid to distal thoracic aorta which is likely comminution of plaque and intramural hematoma. Ang CTA Abd Pelv w Cont CLINICAL HISTORY: Severe onset back pain COMPARISON: None TECHNIQUE: Multiple contiguous axial sections were obtained from the level of the lung bases down through the pelvis without and with the IV infusion of iodinated contrast. Oral contrast was not administered. From these images 3D reconstructions were obtained and viewed on a dedicated and independent workstation. Auto dosage reduction and iterative reconstruction techniques employed. FINDINGS: Liver spleen and pancreas have a normal appearance. Patient has had previous cholecystectomy. There is some cortical irregularity the kidneys which is likely chronic. Patient has moderate asymmetric atheromatous plaque in the aorta without aneurysm. There is some moderate luminal narrowing in the mid infrarenal aorta. There is moderate ectasia of the right common iliac artery. There is mild stenosis in the proximal left common iliac artery. External iliac and femoral arteries are normal caliber. No pelvic fat planes are well demarcated IMPRESSION: Severe diffuse atheromatous plaque Moderate descending thoracic aortic wall irregular thickening. Some of this may be due to chronic intramural hematoma. There is some contrast extending beyond the intima in the lower third of the descending thoracic aorta. This is felt to represent a penetrating ulcer extending to near the adventitia. This is best seen on image #75 axial #79 coronal and #57 sagittal. Some of this intimal irregularity could represent soft atheromatous plaque. Some of this may also be thrombus. Moderate atheromatous plaque in the abdominal aorta with some minimal abdominal aortic narrowing Ectasia of the proximal right common iliac artery and mild stenosis in the proximal left common iliac artery Dr. Devon Odonnell was notified of these findings at the time of this dictation at 3:35 PM
[2021-01-17] MEDS ORDERED: Labetalol 20 MG/4 ML Syringe IVPUSH ONE (15:47)
[2021-01-17 17:53] VITALS: BP 139/69; PULSE 88
== END 2021-01-17 19:24 | disposition home or self-care (01) ==
LOC: JP.ED 12:06
DX: I71.01 Dissection of thoracic aorta (principal); I71.2 Thoracic aortic aneurysm, without rupture; I10 Essential (primary) hypertension; R00.0 Tachycardia, unspecified; Z88.0 Allergy status to penicillin; Z79.899 Other long term (current) drug therapy
CPT/HCPCS: 36415; 71275; 74174; 80053; 84484; 85025; 85379; 93005; 96374; 96375; 99285; J2060; J3010; J3490; J7030; Q9967

== ENCOUNTER 2021-04-04 13:29 | Emergency (ER) | payer MEDICARE, MEDICAID ==
[2021-04-04] MEDS: Ondansetron 4 MG/2 ML SDV IVPUSH ONE (13:56)
[2021-04-04] MEDS: LORazepam 2 MG/ML SDV IVPUSH ONE (13:56)
--- NOTE | 2021-04-04 13:59 | EDM.PDOC ---
ED HPI GENERAL MEDICAL PROBLEM - General Chief Complaint: Abdominal Pain Stated Complaint: [facility] Time Seen by Provider: 04/04/21 13:45 Source of Information: Reports: Patient, EMS, Old Records, RN History Limitations: Reports: No Limitations - History of Present Illness INITIAL COMMENTS - FREE TEXT/NARRATIVE: 65 yo female presents by EMS for chest pain and anxiety. Was seen here a couple mos ago and was dx'd with a thoracic aortic dissection. This dissection was "repaired in [place]". She developed CP today just as she was awakening about 9 AM and says it feels just like when she had her dissection. She describes having a small "spinal stroke" at that time as well. Is having some diarrhea today. There may have been some blood in her stool. An EKG done by EMS showed no acute ischemia. Has had a cough lately, is fully vaccinated for Covid. Onset: Today, Sudden Onset Date: 04/04/21 Onset Time: 09:00 Duration: Hour(s):, Constant Location: Reports: Chest Quality: Reports: Pressure Severity: Moderate Improves with: Reports: None Worsens with: Reports: None Context: Reports: Other (See HPI) Associated Symptoms: Reports: Nausea/Vomiting (no vomiting), Other (anxiety) Treatments PHARMACY INNOVATION ASSISTANT: Reports: Other (see below) (none) Back Pain Score (Numeric/FACES): 10 - Related Data Allergies Allergy/AdvReac Type Severity Reaction Status Date / Time Penicillins Allergy Intermediate Hives Verified 09/25/19 17:36 Home Meds: Home Meds DULoxetine [Cymbalta] 120 mg PO DAILY 11/03/16 [History] Losartan [Cozaar] 100 mg PO DAILY 11/03/16 [History] FLUoxetine HCl [Prozac] 60 mg PO DAILY 01/17/19 [History] amLODIPine [Norvasc] 10 mg PO DAILY 02/24/19 [History] Famotidine 1 tab PO DAILY 09/25/19 [History] Codeine/guaiFENesin [Robitussin AC] 5 - 10 ml PO Q4H PRN #1 ml 04/04/21 [Rx] Past Medical History HEENT History: Reports: Impaired Vision Cardiovascular History: Reports: Hypertension Respiratory History: Reports: None Gastrointestinal History: Reports: None Genitourinary History: Reports: None BOLOGNA LACER History: Reports: Musculoskeletal History: Reports: Other (See Below) Other Musculoskeletal History: bilat hip pain,bilateral knee pain. cervical fracture. R ankle replacement Neurological History: Reports: Concussion Psychiatric History: Reports: Depression Endocrine/Metabolic History: Reports: None Hematologic History: Reports: None Immunologic History: Reports: None Oncologic (Cancer) History: Reports: None Dermatologic History: Reports: None - Infectious Disease History Infectious Disease History: Reports: Chicken Pox - Past Surgical History Head Surgeries/Procedures: Reports: None HEENT Surgical History: Reports: Adenoidectomy, Tonsillectomy Cardiovascular Surgical History: Reports: None GI Surgical History: Reports: Appendectomy, Cholecystectomy Female Surgical History: Reports: Breast Implant, Other (See Below) Other Female Surgeries/Procedures: left breast lump Neurological Surgical History: Reports: C-Spine, Spinal Fusion Musculoskeletal Surgical History: Reports: Hip Replacement, Other (See Below) Other Musculoskeletal Surgeries/Procedures:: cervical fusion Dermatological Surgical History: Reports: None Social & Family History - Family History Family Medical History: No Pertinent Family History - Tobacco Use Tobacco Use Status *Q: Former Tobacco User Used Tobacco, but Quit: Yes Month/Year Tobacco Last Used: 04/2018 - Caffeine Use Caffeine Use: Reports: None - Recreational Drug Use Recreational Drug Use: No ED ROS GENERAL - Review of Systems Review Of Systems: See Below Constitutional: Reports: No Symptoms. Denies: Fever, Chills HEENT: Reports: No Symptoms Respiratory: Reports: No Symptoms Cardiovascular: Reports: Chest Pain Endocrine: Reports: No Symptoms GI/Abdominal: Reports: Diarrhea, Hematochezia, Nausea. Denies: Vomiting : Reports: No Symptoms Musculoskeletal: Reports: No Symptoms Skin: Reports: No Symptoms Neurological: Reports: No Symptoms Psychiatric: Reports: No Symptoms ED EXAM, GENERAL - Physical Exam Exam: See Below Exam Limited By: No Limitations General Appearance: Alert, WD/WN, Mild Distress Eye Exam: Bilateral Eye: Normal Inspection Ears: Normal External Exam, Normal Canal, Hearing Grossly Normal Ear Exam: Bilateral Ear: Auricle Normal, Canal Normal Nose: Normal Inspection, No Blood Throat/Mouth: Normal Inspection, Normal Lips, Normal Oropharynx, Normal Voice, No Airway Compromise Head: Atraumatic, Normocephalic Neck: Normal Inspection Respiratory/Chest: No Respiratory Distress, Lungs Clear, Normal Breath Sounds, No Accessory Muscle Use Cardiovascular: Regular Rate, Rhythm, No Edema GI/Abdominal: Soft, Non-Tender Back Exam: Normal Inspection Extremities: Normal Inspection, Normal Range of Motion, Non-Tender, No Pedal Edema. No: Pedal Edema Neurological: Alert, Oriented, CN II-XII Intact, Normal Cognition, No Motor/Sensory Deficits Psychiatric: Normal Affect, Normal Mood Skin Exam: Warm, Dry, Intact, Normal Color, No Rash Course - Vital Signs Last Recorded V/S: Last Vital Signs Temp 36.4 C 04/04/21 13:44 Pulse 90 04/04/21 16:58 Resp 16 04/04/21 15:25 BP 168/70 H 04/04/21 16:58 Pulse Ox 96 04/04/21 16:58 Orthostatic Blood Pressure [ 153/80 Standing] Orthostatic Blood Pressure [ 146/29 Sitting] Orthostatic Blood Pressure [ 158/70 Supine] - Orders/Labs/Meds Orders: Active Orders 24 hr Category Date Time Status Orthostatic Vital Signs [RC] ASDIRECTED Care 04/04/21 16:11 Active Iopamidol [Isovue-370 (76%)] Med 04/04/21 14:15 Active 80 ml IV . DIRECTED Sodium Chloride 0.9% [Saline Flush] Med 04/04/21 14:01 Active 10 ml FLUSH ONETIME PRN Isolation [COMM] Stat Oth 04/04/21 14:55 Ordered Medication Orders Iopamidol (Iopamidol 755 Mg/Ml 100 Ml Bottle) 80 ml IV . DIRECTED CYNTHIA Stop: 04/04/21 23:00 Last Admin: 04/04/21 15:13 Dose: 80 ml Documented by: KODY Sodium Chloride (Sodium Chloride 0.9% 10 Ml Syringe) 10 ml FLUSH ONETIME PRN PRN Reason: PER RADIOLOGY PROTOCOL Last Admin: 04/04/21 15:14 Dose: 10 ml Documented by: KODY Labs: Laboratory Tests 04/04/21 04/04/21 04/04/21 Range/Units 13:46 13:47 14:54 Sodium 138 L (140-148) mmol/L Potassium 3.8 (3.6-5.2) mmol/L Chloride 100 (100-108) mmol/L Carbon Dioxide 20 L (21-32) mmol/L Anion Gap 21.8 H (5.0-14.0) mmol/L BUN 33 H D (7-18) mg/dL Creatinine 1.5 H (0.5-1.0) mg/dL Est Cr Clr Drug Dosing 35.88 mL/min Estimated GFR (MDRD) 35 L (>60) Glucose 99 (74-106) mg/dL Calcium 10.0 (8.5-10.1) mg/dL Troponin I High Sens 13.7 (<=60.3) pg/mL Influenza Type A RNA Negative (NEGATIVE) RSV RNA (INAAT) Negative (NEGATIVE) Influenza Type B RNA Negative (NEGATIVE) SARS-CoV-2 RNA (HERMELINDO) Negative (NEGATIVE) Meds: Medications Generic Name Dose Route Start Last Admin Trade Name Freq PRN Reason Stop Dose Admin Iopamidol 80 ml 04/04/21 14:15 04/04/21 15:13 Iopamidol 755 Mg/Ml 100 Ml Bottle IV 04/04/21 23:00 80 ml . DIRECTED CYNTHIA Administration Sodium Chloride 10 ml 04/04/21 14:01 04/04/21 15:14 Sodium Chloride 0.9% 10 Ml Syringe FLUSH 10 ml ONETIME PRN Administration PER RADIOLOGY PROTOCOL Discontinued Medications Generic Name Dose Route Start Last Admin Trade Name Freq PRN Reason Stop Dose Admin Acetaminophen 1,000 mg 04/04/21 16:10 04/04/21 16:30 Acetaminophen 500 Mg Tab PO 04/04/21 16:11 1,000 mg ONETIME ONE Administration Guaifenesin/Codeine Phosphate 10 ml 04/04/21 16:10 04/04/21 16:31 Codeine/Guaifenesin 10-100 Mg/5 Ml Syrup 5 Ml Cup PO 04/04/21 16:11 10 ml ONETIME ONE Administration Sodium Chloride 89 mls @ 3 mls/sec 04/04/21 14:01 04/04/21 15:14 Normal Saline IV 04/04/21 14:02 3 mls/sec ONETIME ONE Administration Lactated Ringer's 1,000 mls @ 1,000 mls/hr 04/04/21 14:10 04/04/21 14:20 Ringers, Lactated IV 04/04/21 15:09 1,000 mls/hr BOLUS ONE Administration Lactated Ringer's 1,000 mls @ 1,000 mls/hr 04/04/21 16:19 04/04/21 16:31 Ringers, Lactated IV 04/04/21 17:18 1,000 mls/hr BOLUS ONE Administration Loperamide HCl 2 mg 04/04/21 16:10 04/04/21 16:30 Loperamide 2 Mg Cap PO 04/04/21 16:11 2 mg ONETIME ONE Administration Lorazepam 1 mg 04/04/21 13:46 04/04/21 13:56 Lorazepam 2 Mg/Ml Sdv IVPUSH 04/04/21 13:47 1 mg ONETIME ONE Administration Ondansetron HCl 4 mg 04/04/21 13:46 04/04/21 13:56 Ondansetron 4 Mg/2 Ml Sdv IVPUSH 04/04/21 13:47 4 mg ONETIME ONE Administration - Radiology Interpretation Free Text/Narrative:: CTA of aorta-negative for issues related to dissection - Re-Assessments/Exams Free Text/Narrative Re-Assessment/Exam: 04/04/21 15:32 Has no pain now unless she coughs after Zofran and Ativan IV. Departure - Departure Time of Disposition: 17:40 Disposition: Home, Self-Care 01 Condition: Fair Clinical Impression: Viral illness, Mild dehydration Prescriptions: Codeine/guaiFENesin [Robitussin AC] 5 - 10 ml PO Q4H PRN #1 ml PRN Reason: Cough Instructions: Nonspecific Chest Pain, Adult, [id number], Dehydration, Adult, [id number] Referrals: PCP,None [Primary Care Provider] - Forms: ED Department Discharge Additional Instructions: Take acetaminophen as needed for pain relief. Use Robitussin as directed for cough. Drink ample fluids. Consider loperamide for diarrhea if your symptoms persist. See your doctor or return as needed. Sepsis Event Note (ED) - Focused Exam Vital Signs: Vital Signs Temp Pulse Resp BP Pulse Ox 04/04/21 16:58 90 168/70 H 96 04/04/21 16:21 97 169/67 H 97 04/04/21 15:25 91 16 157/71 H 95 04/04/21 14:28 90 154/81 H 94 L 04/04/21 13:44 36.4 C 100 25 H 145/78 H 100 - My Orders Last 24 Hours: My Active Orders 04/04/21 14:01 Sodium Chloride 0.9% [Saline Flush] 10 ml FLUSH ONETIME PRN 04/04/21 14:15 Iopamidol [Isovue-370 (76%)] 80 ml IV . DIRECTED 04/04/21 14:55 Isolation [COMM] Stat 04/04/21 16:11 Orthostatic Vital Signs [RC] ASDIRECTED - Assessment/Plan Last 24 Hours: My Active Orders 04/04/21 14:01 Sodium Chloride 0.9% [Saline Flush] 10 ml FLUSH ONETIME PRN 04/04/21 14:15 Iopamidol [Isovue-370 (76%)] 80 ml IV . DIRECTED 04/04/21 14:55 Isolation [COMM] Stat 04/04/21 16:11 Orthostatic Vital Signs [RC] ASDIRECTED
[2021-04-04] MEDS: Lactated Ringers 1,000 ML IV ONE ×2 (14:20→16:31)
[2021-04-04] MEDS: Iopamidol 755 Mg/ML 100 ML Bottle IV SCH (15:13)
[2021-04-04] MEDS: Sodium Chloride 0.9% 10 ML Syringe FLUSH PRN (15:14)
[2021-04-04 15:52] LABS: CORONAVIRUS COVID-19 NAA NEGATIVE (NEGATIVE)
--- NOTE | 2021-04-04 15:59 | CT ---
Ang Chest CLINICAL HISTORY: Chest pain, previous dissection TECHNIQUE: Thin section axial contiguous tomographic sections were taken through the chest after bolus IV iodinated contrast administration. Coronal and sagittal images were reconstructed. Auto dosage reduction and iterative reconstruction techniques employed. FINDINGS: There is ectasia of the ascending aorta. There is mild plaque in the arch and proximal brachycephalic vessels. There is a bovine type configuration. There is an 8 aortic stent graft in the descending thoracic aorta. This crosses region in the descending thoracic aorta which contained an intramural hematoma or penetrating ulcer. No extraluminal extravasation is identified. The graft contour is normal. There is moderate atheromatous plaque in the distal thoracic aorta and proximal abdominal aorta. No abnormal fluid collections are identified. No pulmonary mass or infiltrates are seen. IMPRESSION: Descending thoracic aortic stent graft is intact. There is no evidence of leakage or new dissection .
[2021-04-04] MEDS: Acetaminophen 500 MG Tab PO ONE (16:30)
[2021-04-04] MEDS: Loperamide 2 MG Cap PO ONE (16:30)
[2021-04-04] MEDS: Codeine/guaiFENesin 10-100 MG/5 ML Syrup 5 ML Cup PO ONE (16:31)
[2021-04-04 16:59] VITALS: BP 168/70; PULSE 90
== END 2021-04-04 17:45 | disposition home or self-care (01) ==
LOC: JP.ED 13:29
DX: B34.9 Viral infection, unspecified (principal); E86.0 Dehydration; I10 Essential (primary) hypertension; Z88.0 Allergy status to penicillin; Z79.899 Other long term (current) drug therapy; Z87.891 Personal history of nicotine dependence; Z20.822 Contact with and (suspected) exposure to COVID-19
CPT/HCPCS: 0241U; 36415; 71275; 80048; 82272; 84484; 96374; 96375; 99285; A9270; J2060; J2405; J7120; Q9967

== ENCOUNTER 2023-11-10 09:15 | Day surgery (SDC) | payer MEDICARE ==
[~2023-11-10 09:15] MED LIST changes: -Bupivacaine 0.5% 50 ML MDV ONE; -Dextrose 5%-Lactated Ringers 1,000 ML IV SCH; -Lidocaine 1% with EPINEPHrine 1:100,000 50 ML MDV ONE
[2023-11-10] MEDS: Sodium Chloride 0.9% 1,000 ML IV SCH (09:50)
[2023-11-10] MEDS: Lidocaine 1% with EPINEPHrine 1:100,000 50 ML MDV ONE (10:35)
[2023-11-10] MEDS: Bupivacaine 0.5% 50 ML MDV ONE (10:35)
[2023-11-10] MEDS ORDERED: Propofol 200 MG/20 ML SDV ONE (10:43)
[2023-11-10 12:04] VITALS: BP 164/53; PULSE 74
== END 2023-11-10 12:26 | disposition home or self-care (01) ==
LOC: JP.SDS 09:15
PROVIDERS: ATTEND Surgery
DX: C50.411 Malignant neoplasm of upper-outer quadrant of right female breast (principal); K11.8 Other diseases of salivary glands; G47.33 Obstructive sleep apnea (adult) (pediatric); I25.10 Atherosclerotic heart disease of native coronary artery without angina pectoris; Z88.0 Allergy status to penicillin; Z79.899 Other long term (current) drug therapy; Z87.891 Personal history of nicotine dependence; Z17.1 Estrogen receptor negative status [ER-]; Z51.11 Encounter for antineoplastic chemotherapy
CPT/HCPCS: 00532-QZ; 71045; 71045-26; 76000; C1788; C1894; J0665; J1642; J2250; J2704; J3010; J7030

== ENCOUNTER 2023-11-22 09:52 | Inpatient (IN) | payer MEDICARE, MEDICAID ==
[2023-11-22 11:19] LABS: BASOPHILS ABSOLUTE AUTO 0.03 K/uL (0.00-0.10); BASOPHILS PERCENT AUTO 0.2 % (0.1-1.3); EOSINOPHILS ABSOLUTE AUTO 0.11 K/uL (0.00-0.40); EOSINOPHILS PERCENT AUTO 0.7 % (0.0-5.4); HEMATOCRIT 39.1 % (34.3-46.0); HEMOGLOBIN 13.3 g/dL (11.2-15.5); IMMATURE GRAN ABSOLUTE AUTO 0.06 K/uL (0.00-0.23); IMMATURE GRAN PERCENT AUTO 0.4 % (0.0-0.7); LYMPHOCYTES ABSOLUTE AUTO 1.41 K/uL (0.8-3.3); LYMPHOCYTES PERCENT AUTO 9.4 % (11.4-47.7); MEAN CORPUSCULAR HEMOGLOBIN 29.8 pg (31.6-35.5); MEAN CORPUSCULAR VOLUME 87.7 fL (81.4-99.0); MONOCYTES ABSOLUTE AUTO 0.41 K/uL (0.20-0.90); MONOCYTES PERCENT AUTO 2.7 % (3.3-12.6); NEUTROPHILS PERCENT AUTO 86.6 % (40.0-78.1); PLATELET COUNT,PLT 271 K/uL (130-375); RED BLOOD CELL COUNT 4.46 M/uL (3.77-5.24)
[2023-11-22] MEDS: Morphine 2 MG/ML SYRINGE IVPUSH PRN (11:19)
[2023-11-22 11:39] LABS: A/G RATIO 1.1 (1.2-2.2); ALANINE AMINOTRANSFERASE,ALT 23 U/L (12-78); ALBUMIN 3.8 g/dL (3.4-5.0); ALKALINE PHOSPHATASE 106 U/L (46-116); ASPARTATE AMNIOTRANSFERASE,AST 17 U/L (15-37); BLOOD UREA NITROGEN,BUN 25 mg/dL (7-18); CALCIUM 9.1 mg/dL (8.5-10.1); CARBON DIOXIDE,CO2 20 mmol/L (21-32); CHLORIDE,CL 100 mmol/L (100-108); CREATININE 1.3 mg/dL (0.6-1.0); EST CRCL DRUG DOSING (CG) 40.28 mL/min; ESTIMATED GFR 45 mL/min (>60); GLUCOSE RANDOM 125 mg/dL (74-106); POTASSIUM,K 3.9 mmol/L (3.6-5.2); PROTEIN TOTAL,TP 7.4 g/dL (6.4-8.2); SODIUM,NA 133 mmol/L (140-148)
[2023-11-22 11:48] LABS: ANION GAP 16.9 mmol/L (5.0-14.0)
[2023-11-22] MEDS: Sodium Chloride 0.9% 100 ML IV ONE (12:02)
[2023-11-22] MEDS: Sodium Chloride 0.9% 10 ML Syringe FLUSH ONE (12:02)
[2023-11-22] MEDS: Iopamidol 612 MG/ML 100 ML Bottle IV ONE (12:02)
[2023-11-22] MEDS: Sodium Chloride 0.9% 1,000 ML IV ONE (12:19)
[2023-11-22] MEDS: Ketorolac 15 MG/ML SDV IVPUSH ONE (14:09)
[2023-11-22] MEDS: Morphine 10 MG/ML Syringe IM ONE (14:09)
[2023-11-22] MEDS: Meropenem 1 GM in Sodium Chloride 0.9% 100 ML IV SCH ×2 (15:36→16:21)
[2023-11-22] MEDS: Sodium Phosphate,Monobasic/Sodium Phosphate,Dibasic Enema 133 ML Bottle RECTAL ONE ×2 (15:36→16:35)
[2023-11-22] MEDS ORDERED: Albuterol 6.7 GM Inhaler INH PRN (15:47)
[2023-11-22] MEDS ORDERED: Albuterol 0.083% 2.5 MG/3 ML Neb Soln NEB PRN (15:47)
[2023-11-22] MEDS ORDERED: Naloxone 0.4 MG/ML SDV IVPUSH PRN (15:47)
[2023-11-22] MEDS ORDERED: Sodium Chloride 0.9% 10 ML Syringe FLUSH PRN (15:47)
[2023-11-22] MEDS: HYDROmorphone 0.5 MG/0.5 ML Syringe IVPUSH PRN (16:21)
[2023-11-22] MEDS: Prazosin 1 MG Cap PO SCH (16:21)
[2023-11-22] MEDS: Potassium Chloride 10 MEQ Cap.ER PO SCH (16:22)
[2023-11-22] MEDS: Enoxaparin 40 MG/0.4 ML Syringe SUBCUT SCH (16:26)
[2023-11-22] MEDS: atorvaSTATin 20 MG Tab PO SCH (20:14)
[2023-11-22] MEDS: Pregabalin 100 MG Cap PO SCH (20:14)
[2023-11-22] MEDS: traZODone 50 MG Tab PO SCH (20:14)
[2023-11-22] MEDS: Ondansetron 4 MG/2 ML SDV IV PRN (21:39)
[2023-11-22] MEDS: oxyCODONE 5 MG Tab PO PRN (21:39)
[2023-11-22] MEDS: Meropenem 500 MG in Sodium Chloride 0.9% 50 ML IV SCH (22:58)
[2023-11-23] MEDS: Sodium Chloride 0.9% 1,000 ML IV ONE (00:33)
[2023-11-23] MEDS: Sodium Chloride 0.9% 1,000 ML IV SCH (02:34)
[2023-11-23 05:32] LABS: HEMATOCRIT 29.1 % (34.3-46.0); HEMOGLOBIN 9.9 g/dL (11.2-15.5); MEAN CORPUSCULAR HEMOGLOBIN 30.4 pg (31.6-35.5); MEAN CORPUSCULAR VOLUME 89.3 fL (81.4-99.0); RED BLOOD CELL COUNT 3.26 M/uL (3.77-5.24); WHITE BLOOD CELL COUNT,WBC 11.6 K/uL (3.2-11.0)
[2023-11-23 05:48] LABS: ANION GAP 15.1 mmol/L (5.0-14.0); CALCIUM 7.5 mg/dL (8.5-10.1); CREATININE 0.9 mg/dL (0.6-1.0); EST CRCL DRUG DOSING (CG) 58.18 mL/min; MAGNESIUM 1.5 mg/dL (1.8-2.4); POTASSIUM,K 4.1 mmol/L (3.6-5.2)
[2023-11-23] MEDS: Polyethylene Glycol 3350 Powder 17 GM Packet PO PRN (07:15)
[2023-11-23] MEDS: Meropenem 1 GM in Sodium Chloride 0.9% 100 ML IV SCH (08:16)
[2023-11-23] MEDS ORDERED: FLUoxetine 20 MG Cap PO SCH ×2 (09:00)
[2023-11-23] MEDS: Celecoxib 200 MG Cap PO SCH (09:02)
[2023-11-23] MEDS: Famotidine 20 MG Tab PO SCH (09:03)
[2023-11-23] MEDS: Clopidogrel 75 MG Tab PO SCH (09:03)
[2023-11-23] MEDS: amLODIPine 5 MG Tab PO SCH (09:03)
[2023-11-23] MEDS: DULoxetine 30 MG Cap PO SCH (09:03)
[2023-11-23] MEDS: Oxybutynin 5 MG Tab PO SCH (09:04)
[2023-11-23] MEDS: Losartan 50 MG Tab PO SCH (09:04)
[2023-11-23] MEDS: Magnesium Sulfate/Water 2 GM in Premix Bag 1 BAG IV SCH (09:44)
[2023-11-23] MEDS: FLUOXETINE PO SCH (13:54)
[2023-11-23] MEDS: metroNIDAZOLE 250 MG Tab PO SCH (13:54)
[2023-11-23] MEDS: cefTRIAXone 2 GM in Sodium Chloride 0.9% 50 ML IV SCH (13:55)
[2023-11-23] MEDS: Polyethylene Glycol 3350 Powder 17 GM Packet PO ONE (15:01)
[2023-11-23] MEDS: Enoxaparin 40 MG/0.4 ML Syringe SUBCUT SCH (15:02)
[2023-11-23] MEDS: Acetaminophen 325 MG Tab PO PRN (16:41)
[2023-11-24] MEDS: Sodium Chloride 0.9% 1,000 ML IV SCH (03:17)
[2023-11-24 05:32] LABS: HEMATOCRIT 27.6 % (34.3-46.0); HEMOGLOBIN 9.2 g/dL (11.2-15.5); MEAN CORPUSCULAR HEMOGLOBIN 30.4 pg (31.6-35.5); MEAN CORPUSCULAR HGB CONC 33.3 g/dL (31.6-35.5); MEAN CORPUSCULAR VOLUME 91.1 fL (81.4-99.0); RED BLOOD CELL COUNT 3.03 M/uL (3.77-5.24); WHITE BLOOD CELL COUNT,WBC 10.2 K/uL (3.2-11.0)
[2023-11-24 05:51] LABS: C-REACTIVE PROTEIN 10.29 mg/dL (<0.50); CALCIUM 7.5 mg/dL (8.5-10.1); CREATININE 0.8 mg/dL (0.6-1.0); EST CRCL DRUG DOSING (CG) 65.45 mL/min; POTASSIUM,K 3.9 mmol/L (3.6-5.2)
[2023-11-24 05:52] LABS: ANION GAP 9.9 mmol/L (5.0-14.0)
[2023-11-24] MEDS: Polyethylene Glycol 3350 Powder 17 GM Packet PO SCH (09:27)
[2023-11-24] MEDS: Magnesium Citrate Solution 296 ML Bottle PO ONE (11:43)
[2023-11-25 05:34] LABS: HEMATOCRIT 25.9 % (34.3-46.0); HEMOGLOBIN 8.5 g/dL (11.2-15.5); MEAN CORPUSCULAR HEMOGLOBIN 29.9 pg (31.6-35.5); MEAN CORPUSCULAR HGB CONC 32.8 g/dL (31.6-35.5); MEAN CORPUSCULAR VOLUME 91.2 fL (81.4-99.0); RED BLOOD CELL COUNT 2.84 M/uL (3.77-5.24); WHITE BLOOD CELL COUNT,WBC 7.7 K/uL (3.2-11.0)
[2023-11-25 05:39] LABS: CALCIUM 7.6 mg/dL (8.5-10.1); CREATININE 0.7 mg/dL (0.6-1.0); EST CRCL DRUG DOSING (CG) 74.8 mL/min; POTASSIUM,K 3.8 mmol/L (3.6-5.2)
[2023-11-25 05:46] LABS: ANION GAP 9.8 mmol/L (5.0-14.0)
[2023-11-25] MEDS: Furosemide 20 MG/2 ML VIAL IVPUSH ONE ×2 (10:05→17:57)
[2023-11-25] MEDS: Sodium Chloride 0.9% 80 ML IV SCH (11:18)
[2023-11-25] MEDS: Iopamidol 612 MG/ML 100 ML Bottle IV ONE (11:18)
[2023-11-25] MEDS: Lactulose Soln 10 GM/15 ML 15 ML UD Cup PO ONE (13:55)
[2023-11-25] MEDS: metroNIDAZOLE/Normal Saline 500 MG in Premix Bag 1 BAG IV SCH (13:55)
[2023-11-25] MEDS: Ciprofloxacin in D5W 400 MG in Premix Bag 1 BAG IV SCH (15:17)
[2023-11-26 04:41] LABS: HEMATOCRIT 26.6 % (34.3-46.0); HEMOGLOBIN 8.9 g/dL (11.2-15.5); MEAN CORPUSCULAR HEMOGLOBIN 30.4 pg (31.6-35.5); MEAN CORPUSCULAR HGB CONC 33.5 g/dL (31.6-35.5); MEAN CORPUSCULAR VOLUME 90.8 fL (81.4-99.0); RED BLOOD CELL COUNT 2.93 M/uL (3.77-5.24); WHITE BLOOD CELL COUNT,WBC 5.7 K/uL (3.2-11.0)
[2023-11-26 04:55] LABS: C-REACTIVE PROTEIN 5.58 mg/dL (<0.50); CALCIUM 7.9 mg/dL (8.5-10.1); CREATININE 0.9 mg/dL (0.6-1.0); EST CRCL DRUG DOSING (CG) 58.18 mL/min; POTASSIUM,K 3.8 mmol/L (3.6-5.2)
[2023-11-26 04:56] LABS: ANION GAP 11.8 mmol/L (5.0-14.0)
[2023-11-26] MEDS: Furosemide 40 MG/4 ML VIAL IVPUSH ONE (08:26)
[2023-11-26] MEDS: Bisacodyl 10 MG Supp RECTAL ONE (10:21)
[2023-11-26] MEDS: Polyethylene Glycol 3350 Powder 119 GM Bottle PO ONE (13:27)
[2023-11-26] MEDS: Furosemide 20 MG/2 ML VIAL IVPUSH ONE (16:13)
[2023-11-27] MEDS: Furosemide 40 MG/4 ML VIAL IVPUSH ONE (08:53)
[2023-11-27] MEDS: metroNIDAZOLE 250 MG Tab PO SCH (13:14)
[2023-11-27] MEDS: Furosemide 20 MG/2 ML VIAL IVPUSH ONE (15:53)
[2023-11-27] MEDS: Ciprofloxacin 500 MG Tab PO SCH (20:08)
[2023-11-28] MEDS ORDERED: Furosemide 40 MG/4 ML VIAL IVPUSH ONE (08:06)
[2023-11-28] MEDS: Furosemide 40 MG Tab PO ONE (09:43)
[2023-11-28 11:43] VITALS: BP 149/61; PULSE 87
[2023-11-28] MEDS: predniSONE 20 MG Tab PO ONE (12:45)
== END 2023-11-28 12:46 | disposition home or self-care (01) | DRG 391 ==
LOC: JP.ED 09:52 → JP.MS 15:02
PROVIDERS: ADMIT Hospitalist; ATTEND Internal Medicine
DX: K57.32 Diverticulitis of large intestine without perforation or abscess without bleeding (principal); J96.01 Acute respiratory failure with hypoxia; C50.919 Malignant neoplasm of unspecified site of unspecified female breast; H54.7 Unspecified visual loss; I10 Essential (primary) hypertension; G47.30 Sleep apnea, unspecified; F32.A Depression, unspecified; Z96.649 Presence of unspecified artificial hip joint; K59.09 Other constipation; M19.90 Unspecified osteoarthritis, unspecified site; I25.10 Atherosclerotic heart disease of native coronary artery without angina pectoris; K52.9 Noninfective gastroenteritis and colitis, unspecified; Z79.02 Long term (current) use of antithrombotics/antiplatelets; Z88.0 Allergy status to penicillin; Z79.51 Long term (current) use of inhaled steroids; Z79.899 Other long term (current) drug therapy; Z87.81 Personal history of (healed) traumatic fracture; Z86.16 Personal history of COVID-19; Z85.820 Personal history of malignant melanoma of skin; Z98.82 Breast implant status; Z98.890 Other specified postprocedural states; Z90.49 Acquired absence of other specified parts of digestive tract; Z98.1 Arthrodesis status
CPT/HCPCS: 36415; 74177; 80053; 85025; 93005; 93010; 96361; 96374; 96375; 96376; 99285 ×2; J1885; J2270 ×2; J3490 ×2; J7030; Q9967; 71046; 80048; 83605; 83735; 85027; 86140; 99221; 99231; 99232; 99238; A9270-GY; J0696; J0744; J1170; J1650; J1836; J1940; J2185; J2405; J3475; J7512